=== PATIENT | male | born 1960 | race African-American/Black ===

== ENCOUNTER 2024-03-04 11:45 | Emergency (ER) | payer OTHER, SELFPAY ==
[2024-03-04 12:00] VITALS: BP 171/99
[2024-03-04 12:09] LABS: % Basophils 0.6 % (0-2); % Eosinophils 6.7 % (0-6); % Immature Granulocytes 0.2 % (0-0.5); % Lymphocytes 37.9 % (20.5-51.1); % Monocytes 12.1 % (1.7-9.3); % Neutrophils 42.5 % (42.2-75.2); Absolute Eosinophils 0.3 10^3/uL (0-0.7); Absolute Lymphocytes 1.8 10^3/uL (1.2-3.4); Absolute Monocytes 0.6 10^3/uL (0.1-0.6); Hematocrit 40.6 % (39.0-52.0); Hemoglobin 13.4 g/dL (13.0-18.0); Mean Corpuscular Hgb 29.9 pg (27.0-31.0); Mean Corpuscular Volume 90.6 fL (80.0-94.0); Mean Platelet Volume 9.1 fL (7.4-10.4); Nucleated Red Blood Cells % 0 % (-); Platelet Count 213 10^3/uL (130-400); Red Blood Cell Count 4.48 10^6/uL (4.70-6.10); Red Cell Dist. Width 12.3 % (11.5-14.5); White Blood Cell Count 4.6 10^3/uL (4.8-10.8)
[2024-03-04 12:26] LABS: INR 1.05; PT 13.6 Sec (11.4-14.6)
[2024-03-04 12:31] LABS: ALT (SGPT) 27 U/L (0-50); AST (SGOT) 39 U/L (17-59); Albumin 4.7 g/dl (3.5-5.0); Alkaline Phosphatase 85 U/L (38-126); Blood Urea Nitrogen 15 mg/dl (9-20); Calcium 9.7 mg/dl (8.4-10.2); Carbon Dioxide 26 mmol/L (22-30); Chloride 105 mmol/L (98-107); Glucose 130 mg/dl (70-99); Potassium 4.2 mmol/L (3.5-5.1); Sodium 136 mmol/L (135-145); Total Bilirubin 0.5 mg/dl (0.2-1.3); Total Protein 7.8 g/dl (6.3-8.2); eGFR > 60.00
[2024-03-04 12:32] LABS: Troponin I 0.015 ng/ml
--- NOTE | 2024-03-04 14:51 | ED.GENMED ---
History of Present Illness
General
Chief Complaint: Chest Pain
Source: patient and spouse
Exam Limitations: none
Time Seen by Provider: 03/04/24 14:43
Nursing documentation reviewed up to this point in time: agreed with
Travel History
Have you had any contact with someone who has COVID-19?: No
Do you have any symptoms of coronavirus? Fever > 100 degrees, chills, cough, shortness of breath, sore throat, loss of taste or smell, muscle aches, or headache?: No
History of Present Illness
History of Present Illness:
63-year-old male with a past medical history of hypertension, diabetes who presents to the emergency room for evaluation of chest pain. Patient reports onset of symptoms this morning and they have been constant since onset�she says that they
started shortly after he finished his breakfast this morning. He reports a tightness in the left chest/pectoral region; he describes the feeling as if he did some sort of exercise but says he has not worked out. He reports he will occasionally get
worse with inspiration. No clear relieving factors noted. He denies any associated shortness of breath. He denies any nausea, vomiting, diaphoresis. Denies any abdominal pain. He has not had any swelling or pain in his legs. He denies any
recent illness, cough, fevers. He denies having had similar symptoms in the past. He denies any known cardiac history.
Review of Systems
Review of Systems
All Other Systems: ROS reviewed and negative except as documented in HPI and ROS
Constitutional: Denies fever or chills
EENT: Denies sore throat or runny nose
Respiratory: Denies cough or trouble breathing
Cardiac: Reports chest pain; Denies diaphoresis, palpitations or syncope
ABD/GI: Denies abdominal pain, nausea, vomiting or diarrhea
: Denies flank pain
Musculoskeletal: Denies edema, neck pain or back pain
Neurological: Denies dizzy or headache
Phy Exam
Physical Exam
Physical Exam:
General: Awake, alert, oriented x3; no acute distress
Head: Normocephalic, atraumatic
Eyes: Conjunctiva normal, sclera anicteric
Throat: Airway intact, handling secretions
Neck: Trachea midline
Lungs: Clear to auscultation bilaterally, no wheezing, rales, rhonchi
Heart: Regular rate and rhythm, no murmurs, gallops, or rubs
Abd: Soft, non distended, nontender
Neuro: Cranial nerves grossly intact, speech fluid
Skin: no rash
Extremities: No edema in extremities, warm and well-perfused with good pulses
Scores
Heart Failure Risk
Heart Failure Risk Score: Not Applicable
Heart Score for Chest Pain Patients
STEMI patient?: No
History: Slightly or Non-Suspicious
ECG: Normal
Age: >/= 65 years
Risk Factors: 1 or 2 Risk Factors
Troponin: </= Normal Limit
Heart Score for Chest Pain Patients: 3
Heart Score Risk: 2.5% MACE over next 6 weeks
Withdrawal Assessment of Alcohol
Withdrawal Assessment Completed?: Not applicable
Course
Orders/Labs/Results
Orders:
Orders
03/04/24 12:00
EKG [Electrocardiogram (*1)] Urgent
Reason for Study: Chest Pain
EKG- Treatment ONCE
CR Chest - 2 Views Urgent
Comment:
Reason For Exam: chest pain
03/04/24 12:02
Complete Blood Count/With Diff Urgent
Comprehensive Metabolic Panel Urgent
Prothrombin Time Urgent
Troponin I Urgent
03/04/24 16:08
D-Dimer Urgent
Troponin I Urgent
Abnormal Lab Results
03/04/24
12:02
WBC 4.6 L 10^3/uL
(4.8-10.8)
RBC 4.48 L 10^6/uL
(4.70-6.10)
Monocytes % 12.1 H %
(1.7-9.3)
Eosinophils % 6.7 H %
(0-6)
Glucose 130 H mg/dl
(70-99)
03/04/24 12:02
03/04/24 12:02
Vital Signs
Initial and Last Documented VS:
Initial Vital Signs
Temp Pulse Resp BP Pulse Ox
36.8 C 79 17 171/99 99
03/04/24 12:00 03/04/24 12:00 03/04/24 12:00 03/04/24 12:00 03/04/24 12:00
Last Documented Vital Signs
Temp Pulse Resp BP Pulse Ox
36.8 C 79 17 171/99 99
03/04/24 12:00 03/04/24 12:00 03/04/24 12:00 03/04/24 12:00 03/04/24 12:00
MDM/Problems Addressed
Differential Diagnosis Includes:
GERD, costochondritis, pneumothorax, pulmonary embolism, ACS/angina
MDM/Problems Addressed:
63-year-old male presents for evaluation of vague tightness in the left chest constant since this morning after breakfast. Hypertensive but otherwise normal vitals. Physical exam as above. EKG shows no STEMI. Will plan to place an IV check labs
including a CBC and a CMP, troponin, D-dimer. Check chest x-ray. Monitor on telemetry. Reassess after the above.
Labs reviewed: CBC unremarkable, CMP no clinically significant abnormalities. Troponin negative x 1�repeat pending. Awaiting D-dimer and chest x-ray. Continue to monitor.
D-dimer negative. Serial troponins negative. Chest x-ray shows no acute disease. Patient has remained stable throughout his ER visit. Low suspicion for emergent pathology based on history, exam, negative workup as above. HEART score 3. I think
he is stable for discharge at this point however given his cardiac risk factors I will have him follow-up with cardiology as an outpatient via our chest pain referral hotline. He feels very comfortable this plan. We spoke about return precautions
and all questions were answered.
Chronic conditions affecting care:
Hypertension and diabetes�higher risk for heart disease
Acute Exacerbation and/or Progression of Chronic Illness:
Acutely hypertensive
Acute Exacerbation and/or Progression of Chronic Illness: HTN
*Radiology
Radiology exam reviewed: preliminary read by ED provider and radiology read reviewed
*Pulse Oximetry
Patient hypoxic: no
*EKG
Interpreted by ED Provider?: Yes
Heart Rate: 86
Rate: normal
Rhythm: sinus
Bois D Arc: normal axis
Interval: normal interval
QRS Pattern: normal QRS
Ischemia: no ischemia
*Critical Care Note
Total Time (30-74mins, 75-104mins- exclusive of procedures): Not Applicable
Data Reviewed
Source: patient and spouse
ED Attending Note
-
Portions of this chart may have been created with voice recognition software.� Occasional wrong word or��sound alike� substitutions may have occurred due to the inherent limitations of voice recognition software.
Discharge Plan
Departure
Patient Disposition: Home (Routine Discharge)
Date of Disposition: 03/04/24
Time of Disposition: 17:36
Patient with high blood pressure during this ER visit?: Yes
Discharge Problem:
Chest pain, Hypertension
Instructions: Chest Pain CBC Follow Up, BLOOD PRESSURE
Referrals:
Ashlyn Henriquez MD [Active] - Call in 1-3 days for appt
UNKNOWN - PT DOES,NOT KNOW [Family Provider] -
Activity Restrictions/Additional Instructions:
Thank you for visiting the Emergency Department at [facility].
1. Please schedule a follow up appointment as directed. Call first thing tomorrow morning to make an appointment.
2. If indicated, please take your medications as instructed and indicated on discharge paperwork.
3. If any of your symptoms do not improve, or persist, or become more severe within 6-12 hours, please return to the emergency department for further care.
4. Please return to the emergency department if you develop a headache, neck pain/stiffness, fever greater than 100.4F, chest pain, shortness of breath, persistent nausea, vomiting, slurred speech, difficulty walking, numbness/tingling, weakness,
signs of infection or any other symptoms that are worrisome to you.
Please call [phone] if you have any questions.
Interventions
Interventions:
*Risk Screen - Suicide Last Done: 03/04/24 14:46
*Neglect/Abuse Screening Last Done: 03/04/24 14:46
Discharge Date and Time
Print Language: ETHIOPIAN
[2024-03-04 16:35] LABS: D-Dimer 0.28 ug/mlFEU (0.00-0.50)
[2024-03-04 16:45] LABS: Troponin I 0.019 ng/ml
== END 2024-03-04 17:42 | disposition home or self-care (01) ==
LOC: EMR 11:45
PROVIDERS: Emergency Medicine; EMERGENCY PHYSICIAN Emergency Medicine
DX: R07.89 Other chest pain (principal); I10 Essential (primary) hypertension; E11.9 Type 2 diabetes mellitus without complications
CPT/HCPCS: 99285; 71046; 80053; 84484; 85025; 85379; 85610; 93005